=== PATIENT | male | born 1950 | race Caucasian/White ===

== ENCOUNTER 2016-10-01 19:56 | Observation (INO) | payer OTHER ==
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
--- NOTE | ~2016-10-01 | OR ---
Unit #: [id number] #: [id number] Patient: LANCE FORD [id number] [address] [address] [id number] MR#: [id number] NAME: LANCE FORD ROOM: 472 Date of Procedure: 10/02/2016 Admission Date: 10/01/2016 Surgeon: Juan Mcdermott M.D. : 1950 Attending Physician: Erasmo Agarwal III, M.D. Primary Care Physician: Belle Jha M.D. OPERATIVE REPORT PREOPERATIVE DIAGNOSIS Esophageal obstruction from food bolus. POSTOPERATIVE DIAGNOSIS Esophageal obstruction from food bolus. PROCEDURES PERFORMED 1. Esophagogastroduodenoscopy. 2. Removal of esophageal food bolus. 3. Biopsy of antrum for Helicobacter pylori testing. ANESTHESIA Monitored anesthesia care. FINDINGS The patient had a large piece of meat in the distal esophagus, which spontaneously passed with insufflation. SPECIMENS Sent to Pathology. COMPLICATIONS None apparent. CONDITION The patient tolerated the procedure well. INDICATIONS FOR PROCEDURE The patient is a 66-year-old white male, who had a large piece of meat that he ate 36 to 48 hours ago. It became stuck in his distal esophagus. He presents at this time for upper endoscopy. DESCRIPTION OF PROCEDURE After obtaining informed consent, the patient was brought to the endoscopy suite. After adequate monitored anesthesia care, had the endoscope placed through the mouth into the upper esophagus under direct vision. It was slowly advanced down the esophagus and a large meat bolus was seen in the distal esophagus that lodged at the GE junction. With passing the scope down with insufflation, the piece of meat spontaneously passed into the stomach. At this point, the scope was placed into the stomach and through the pylorus into the duodenum. The second and third portion of the duodenum were normal, but the duodenal bulb had some slight scarring and Unit #: [id number] #: [id number] Patient: LANCE FORD some duodenitis. There was no overt ulceration seen. There was some mild distal gastritis present. A biopsy was obtained for Helicobacter pylori testing. On retroflexing back to the GE junction, there was no hiatal hernia seen. No abnormalities were found in the proximal third, middle third, or incisura. On pulling back above the GE junction, there was some distal esophagitis, but there was no stenosis, stricture, or neoplasm seen. The remaining portion of the esophagus was within normal limits. Laryngeal structures were grossly normal as viewed from above. The scope was removed without difficulty. The patient went from the endoscopy suite to the recovery area in stable condition. RECOMMENDATIONS Gastroesophageal reflux sheet given. Prescription for omeprazole given. Discharge home later today. Follow up in our office in 2 to 3 weeks time. Dictated by... Diamond Pinto/zainab TD: 10/03/2016 03:53 JOB #: [id number] CC: [facility] OPERATIVE REPORT Page 1 of 1 X Juan Mcdermott MD X PROCEDURE OPERATIVE NOTE
[~2016-10-01 19:56] MED LIST: BENADRYL; FLEXERIL; HYDROCODONE-APA1 T30; NAPROXEN; NEXIUM PO; NO MEDICATIONS; SUDAFED
[2016-10-01 20:40] LABS: BASOPHIL% 0.7 % (0-2.5); EOSINOPHIL# 0.1 X10e3 (0-0.7); LYMPHOCYTE# 1.5 X10e3 (1.0-3.5); LYMPHOCYTE% 27.1 % (17.0-45.0); MEAN CELL VOLUME 88.3 FL (83-96); MEAN CORPUSCULAR HGB CONC 33.9 g/dL (30-36); MEAN PLATELET VOLUME 8.3 FL (6.5-11.5); MONOCYTE# 0.4 X10e3 (0-1.0); NEUTROPHIL# 3.4 X10e3 (1.5-7.1); NEUTROPHIL% 63.2 % (40-75); PLATELET COUNT 213 X10e3 (140-420); RED BLOOD COUNT 5.33 X10e (3.90-5.60); RED CELL DISTRIBUTION WIDTH 14.2 % (11.0-15.5); WHITE BLOOD COUNT 5.4 X10e3 (4.0-10.5)
[2016-10-01 20:42] LABS: DIFF IND NO
[2016-10-01 20:57] LABS: BUN/CREATININE RATIO 22.5; CALCIUM SERUM 9.3 mg/dL (8.4-10.2); CREATININE SERUM 0.8 mg/dL (0.6-1.4); GLOM FILT RATE Estimated 93.1 mL/min (>60); POTASSIUM 4.3 mmol/L (3.5-5.1)
[2016-10-02] MEDS ORDERED: OMEPRAZOLE40 M1 PO (12:03)
== END 2016-10-02 14:30 | disposition home or self-care (01) ==
LOC: SED 19:56 → SEDOF 22:44 → SED 22:46 → SEDOF 22:46 → C4C 22:46
PROVIDERS: Emergency Medicine
DX: T18.128A Food in esophagus causing other injury, initial encounter (principal); K21.9 Gastro-esophageal reflux disease without esophagitis
CPT/HCPCS: 80048; 85025; 87077; 96361; 96374; 99283; G0378; J1610; J2250